=== PATIENT | female | born 1995 | race Caucasian/White ===

== ENCOUNTER → 2016-03-07 | Day surgery (SDC) | payer BC ==
[2016-03-03 10:20] LABS: BASO # 0.1 10*3/uL (0.0-0.1); BASO % 0.8 % (0.0-1.0); EOS # 0.5 10*3/uL (0.0-0.4); EOS % 7.4 % (1.0-4.0); HEMATOCRIT 42.2 % (37.0-47.0); LYMPH # 1.7 10*3/uL (1.3-4.4); LYMPH % 26.1 % (27.0-41.0); MEAN CELL VOLUME 86.5 fl (81.0-99.0); MEAN CORPUSCULAR HGB 28.7 pg (27.0-31.0); MEAN CORPUSCULAR HGB CONC 33.2 g/dl (33.0-37.0); MEAN PLATELET VOLUME 10.7 fl (9.6-12.3); MONO # 0.5 10*3/uL (0.1-1.0); NEUT # 3.7 10*3/uL (2.3-7.9); NEUT % 57.4 % (47.0-73.0); PLATELET COUNT AUTOMATED 321 10*3/uL (130-400); RED BLOOD COUNT 4.88 10*6/uL (4.10-5.10); RED CELL DISTRI WIDTH 12.3 % (0-14.5); WHITE BLOOD COUNT 6.4 10*3/uL (4.8-10.8)
[~2016-03-07] VITALS: Ht 154.9 cm; Wt 64.4 kg
[~2016-03-07] MED LIST: BCP PO; BUPROPION HYDR150 M1 PO; CYMBALTA20 M1 PO; HYDROCODONE BIT1 T11 PO; LOMEDIA 24 FE1 EACH PO; NAPROSYN500 MG PO; ZOFRAN4 MG PO
--- NOTE | ~2016-03-07 | O ---
[place], [place] OPERATIVE NOTE [id number] UNIT #: [id number] ROOM: DOCTOR: YUMIKO LINDQUIST MD BIRTHDATE: [birth year] DOS: 03/07/2016 PREOPERATIVE DIAGNOSES: Chronic right lower quadrant pain, hypermenorrhea, dysmenorrhea, history of IC, interstitial cystitis and concern for endometriosis. POSTOPERATIVE DIAGNOSES: Chronic right lower quadrant pain, hypermenorrhea, dysmenorrhea, history of IC, interstitial cystitis and concern for endometriosis, but with the operative findings of a completely normal pelvis and upper abdomen. OPERATION: Diagnostic laparoscopy. SURGEON: Yumiko Lindquist M.D. ANESTHESIA: General. ESTIMATED BLOOD LOSS: Minimal. REPLACEMENTS: IV fluids and Toradol. COMPLICATIONS: There were no complications. CONDITION: The patient's condition to recovery stable. OPERATIVE SUMMARY: The patient was taken to the operating room in supine position, general anesthesia, endotracheal intubation, lithotomy position, prepped and draped in routine manner. Cervix was grasped with tenaculum and cervical manipulator placed and a Bailey catheter placed to straight drain. Infraumbilical and suprapubic incisions were made under direct visualization to the infraumbilical incision. A 5 mm trocar sleeve and laparoscope were placed. Insufflation with CO2 was undertaken followed by placement of a 5 mm trocar sleeve and probe to the suprapubic incision. Systematic examination of the pelvis revealed the anterior and posterior cul-de-sac to be normal. There was 1 peritoneal window on the right posterior cul-de-sac, but exploration of this with a laparoscope revealed no evidence of endometriosis. They said the uterus was symmetric, normal in size, configuration, and mobility. The tubes and ovaries were completely normal bilaterally. All supporting structures were normal bilaterally. There was a small right paratubal cyst noted. Examination of the appendix was grossly within normal limits as was the ascending and descending colon. The liver and gallbladder were also grossly normal to examine as well as general exam of the bowel. Once this normal survey was completed, the suprapubic trocar sleeve and probe were removed noting no excessive anterior abdominal wall bleeding. CO2 was allowed to escape, followed by removal of the infraumbilical trocar sleeve and laparoscope. Each incision was closed with subcuticular 3-0 Monocryl suture. Steri-Strips were placed and dressings placed. Instrumentation was removed from the vagina and noting good hemostasis. The Bailey catheter was removed with clear urine about 50 mL. The patient was cleaned off, taken out of lithotomy position, awakened, extubated, and transferred to recovery in satisfactory condition. [place], [place] OPERATIVE NOTE NAME: DREW LYN UNIT #: [id number] ROOM: DOCTOR: YUMIKO LINDQUIST MD BIRTHDATE: [birth year] YUMIKO LINDQUIST MD CM:OPRECORD:OPERATIVE NOTE [id number] EDISON LINDQUIST MD 03/07/16 2237 interface
--- NOTE | ~2016-03-07 | WRIGHTHP ---
[place], [place] PATIENT HISTORY AND PHYSICAL EXAM NAME: DREW LYN [facility] #: [id number] UNIT #: [id number] ROOM: DOCTOR: YUMIKO LEAL MD BIRTHDATE: [birth year] DOS: 03/07/2016 She is to have surgery on 03/07/2016 in terms of diagnostic laparoscopy. HISTORY OF PRESENT ILLNESS: This patient presented first sometime ago in 05/2015 with pelvic pain. This was in followup due to an ER visit for pelvic pain. She had a significant elevation in her PUF questionnaire and had a positive KCl challenge, but refused to keep any appointments in regard to treatment for interstitial cystitis. The patient was not seen again from 05/26/2015 until 02/24/2016 when she presented with right lower quadrant pain with vomiting, diarrhea and wanted to discuss. We discussed her previous therapy and workup and her previous ultrasound, which was normal in 03/2015 and had a good discussion about appendicitis, gastroenteritis, gallbladder disease, IC and pelvic disorders. At that time, a CBC was obtained and showed no evidence of an acute inflammatory reaction, i.e., normal white cell count, normal H and H and a CAT scan revealed no evidence of appendicitis or other pelvic atypicalities. The patient continued to have these symptoms and actually called requesting narcotic pain medication and was advised that we could not treat what we did not know to take care of and therefore we recommended a diagnostic laparoscopy because of the severity of her right lower quadrant pain and had a negative workup. To that end, the risks and benefits, indications, potential complications, and alternatives were reviewed, understanding was stated and she did sign the consent. PAST MEDICAL HISTORY: Reveals history of a right ovarian cyst, but this had resolved per the ultrasound in 03/2015. She also has a history of depression. She did have a Pap smear in 2016, which was normal. She states that she is virginal at this time. She does use Lomedia control pills for menstrual regulation and for decreasing flow and dysmenorrhea. She also uses to help suppress the ovaries and try to prevent recurrent cyst formation. She has never been obviously . She has had no other significant hospitalizations or injuries or illnesses. SOCIAL HISTORY: She does not smoke or drink. ALLERGIES: She states no known allergies. REVIEW OF SYSTEMS: Stable. FAMILY HISTORY: Essentially negative except for maternal grandmother with history of cervical cancer. PHYSICAL EXAMINATION: GENERAL: Does reveal the patient who appears to be somewhat uncomfortable. She is 5 feet 2 inches, 150 pounds, BMI is 27.4. VITAL SIGNS: Blood pressure is 128/76. HEENT: Normal. NECK: Normal. LUNGS: Normal. CARDIAC: Normal. [place], [place] PATIENT HISTORY AND PHYSICAL EXAM NAME: DREW LYN UNIT #: [id number] ROOM: DOCTOR: YUMIKO LEAL MD BIRTHDATE: [birth year] BREASTS: Normal. ABDOMEN: Soft with good bowel sounds, no rebound, but is tender on palpation in the deep right lower quadrant. EXTREMITIES: Grossly intact. NEUROLOGIC: Grossly intact. EXTERNAL GENITALIA: Normal. I did not use a speculum exam, but digital exam does reveal that the cervix and uterus appeared to be normal. The bladder is normal. The left adnexa is negative. Right adnexa is tender, but does not reveal any significant mass effect. It is tender, however. RECTAL: Deferred. ASSESSMENT: Is that of a young lady with rather significant persistent right lower quadrant pain and she has actually had pain since the early spring, was diagnosed with interstitial cystitis, but has refused any therapy. At this time, the symptoms appear to be an acute enough and severe enough to warrant a laparoscopy to rule out endometriosis, particularly as she does have dysmenorrhea and hypermenorrhea without control pill. Based on this information, we will then proceed with other evaluations, therapy, etc., as indicated. On 03/07/2016, the patient will undergo a diagnostic laparoscopy. YUMIKO LEAL MD CM:HISPHYS:PATIENT HISTORY AND PHYSICAL EXAMINATION [id number] EDISON LEAL MD 03/03/16 1512 interface
[2016-03-07 08:00] VITALS: BP 124/72
[2016-03-07 09:30] VITALS: BP 110/82
[2016-03-07 09:45] VITALS: BP 118/63
[2016-03-07 10:00] VITALS: BP 111/73
[2016-03-07 10:15] VITALS: BP 98/62
[2016-03-07 10:27] VITALS: BP 116/68
== END | disposition home or self-care (01) ==
LOC: SDC 03-03 09:30
PROVIDERS: Obstetrics & Gynecology
DX: N92.0 Excessive and frequent menstruation with regular cycle (principal); N94.6 Dysmenorrhea, unspecified; N83.8 Other noninflammatory disorders of ovary, fallopian tube and broad ligament; F41.9 Anxiety disorder, unspecified; F32.9 Major depressive disorder, single episode, unspecified

== ENCOUNTER → 2016-05-12 | Outpatient (CLI) | payer BC | END | disposition home or self-care (01) | LOC: US 09:19 | DX: R10.31 Right lower quadrant pain (principal); R10.2 Pelvic and perineal pain ==

== ENCOUNTER 2016-09-09 16:00 | Emergency (ER) | payer BC ==
[~2016-09-09] VITALS: Wt 65.8 kg
[2016-09-09] MEDS ORDERED: AUGMENTIN 875875 MG PO (16:28)
== END 2016-09-09 16:44 | disposition home or self-care (01) ==
LOC: ED 16:00
DX: S41.051A Open bite of right shoulder, initial encounter (principal); W50.3XXA Accidental bite by another person, initial encounter; Y93.89 Activity, other specified; Y92.9 Unspecified place or not applicable; Y99.9 Unspecified external cause status

== ENCOUNTER 2017-03-21 19:04 | Emergency (ER) | payer BC ==
[~2017-03-21] VITALS: Ht 154.9 cm; Wt 65.8 kg
[~2017-03-21 19:04] MED LIST changes: +AUGMENTIN 875875 MG PO
[2017-03-21 19:40] LABS: BASO % 0.5 % (0.0-1.0); EOS # 0.5 10*3/uL (0.0-0.4); EOS % 6.4 % (1.0-4.0); HEMATOCRIT 40.4 % (37.0-47.0); HEMOGLOBIN 13.6 g/dl (12.0-16.0); LYMPH # 2.4 10*3/uL (1.3-4.4); LYMPH % 30.3 % (27.0-41.0); MEAN CELL VOLUME 85.4 fl (81.0-99.0); MEAN CORPUSCULAR HGB 28.8 pg (27.0-31.0); MEAN CORPUSCULAR HGB CONC 33.7 g/dl (33.0-37.0); MEAN PLATELET VOLUME 10.7 fl (9.6-12.3); MONO # 0.7 10*3/uL (0.1-1.0); MONO % 8.2 % (3.0-9.0); NEUT # 4.4 10*3/uL (2.3-7.9); NEUT % 54.4 % (47.0-73.0); PLATELET COUNT AUTOMATED 283 10*3/uL (130-400); RED BLOOD COUNT 4.73 10*6/uL (4.10-5.10); RED CELL DISTRI WIDTH 12.8 % (0-14.5)
[2017-03-21 19:44] LABS: BILIRUBIN NEGATIVE (NEGATIVE); BLOOD 3+ (NEGATIVE); CLARITY SL CLOUDY (CLEAR); COLOR YELLOW (YELLOW); GLUCOSE NEGATIVE (NEGATIVE); KETONE NEGATIVE (NEGATIVE); LEUKO ESTERASE NEGATIVE (NEGATIVE); NITRITE NEGATIVE (NEGATIVE); UROBILINOGEN 0.2 E.U./dl (0.2-1.0)
[2017-03-21 19:51] LABS: BACTERIA TRACE; MUCOUS 1+; RBC 51-100 rbc/hpf (0-2)
[2017-03-21 19:52] LABS: WBC 0-2 wbc/hpf (0-5)
[2017-03-21 20:00] LABS: ALBUMIN 3.9 gm/dl (3.1-4.5); ALKALINE PHOSPHATASE 64 U/L (45-117); BUN 8 mg/dl (7-24); CHLORIDE 106 mmol/L (98-107); CREATININE 0.75 mg/dL (0.55-1.02); LIPASE 155 U/L (73-393); POTASSIUM 3.5 mmol/L (3.5-5.1); SGOT/AST 18 IU/L (3-35); SGPT/ALT 29 U/L (12-78); SODIUM 141 mmol/L (136-145); TOTAL PROTEIN 7.9 gm/dL (6.4-8.2)
[2017-03-21] MEDS ORDERED: NAPROSYN500 MG PO (21:04)
[2017-03-21] MEDS ORDERED: ZOFRAN ODT4 MG SL (21:04)
[2017-03-21] MEDS ORDERED: SEPTDS PO (21:34)
== END 2017-03-21 23:06 | disposition home or self-care (01) ==
LOC: ED 19:04
PROVIDERS: Nurse Practitioner Family
DX: N20.0 Calculus of kidney (principal); R10.31 Right lower quadrant pain; Z79.899 Other long term (current) drug therapy

== ENCOUNTER 2019-09-03 14:08 | Emergency (ER) | payer BC ==
[~2019-09-03] VITALS: Wt 72.6 kg
[~2019-09-03 14:08] MED LIST changes: +SEPTDS PO; +ZOFRAN ODT4 MG SL
[2019-09-03] MEDS ORDERED: IBU800 MG PO (14:49)
[2019-09-03] MEDS ORDERED: SEPTDS PO (14:49)
[2019-09-03] MEDS ORDERED: CEPHALEXIN500 M1 PO (14:49)
== END 2019-09-03 15:36 | disposition home or self-care (01) ==
LOC: ED 14:08
DX: L03.115 Cellulitis of right lower limb (principal); Z79.899 Other long term (current) drug therapy

== ENCOUNTER 2021-06-03 22:14 | Emergency (ER) | payer SELFPAY ==
[~2021-06-03] VITALS: Ht 157.4 cm; Wt 68.0 kg
[~2021-06-03 22:14] MED LIST changes: +CEPHALEXIN500 M1 PO; +IBU800 MG PO
[2021-06-03] MEDS ORDERED: AMOXICILLIN500 M2 PO (22:47)
[2021-06-03] MEDS ORDERED: CORTISPORIN SUS10 ML OT (22:47)
== END 2021-06-03 23:06 | disposition home or self-care (01) ==
LOC: ED 22:14
DX: H66.91 Otitis media, unspecified, right ear (principal); H60.501 Unspecified acute noninfective otitis externa, right ear; Z79.899 Other long term (current) drug therapy

== ENCOUNTER → 2021-09-01 | Outpatient (CLI) | payer BC ==
[~2021-09-01] MED LIST changes: +AMOXICILLIN500 M2 PO; +CORTISPORIN SUS10 ML OT
== END | disposition home or self-care (01) ==
LOC: RAD 11:19
PROVIDERS: ATTEND Family Medicine
DX: R05.1 Acute cough (principal); I70.0 Atherosclerosis of aorta